=== PATIENT | female | born 1970 | race Caucasian/White ===

== ENCOUNTER 2016-06-13 12:04 | Emergency (ER) | payer OTHER | END 2016-06-13 14:47 | disposition home or self-care (01) | LOC: ER 12:04 | DX: N75.1 Abscess of Bartholin's gland (principal); F17.210 Nicotine dependence, cigarettes, uncomplicated ==

== ENCOUNTER 2016-06-15 08:13 | Emergency (ER) | payer OTHER ==
[2016-06-15] MEDS ORDERED: PROPARACAINE 0.5% OP SOLN ONE (08:52)
== END 2016-06-15 09:06 | disposition home or self-care (01) ==
LOC: ER 08:13
DX: N75.1 Abscess of Bartholin's gland (principal); F17.210 Nicotine dependence, cigarettes, uncomplicated

== ENCOUNTER 2016-06-18 18:26 | Emergency (ER) | payer OTHER, SELFPAY ==
[2016-06-18] MEDS ORDERED: LIDOCAINE 2% 20 ML ONE (19:54)
[2016-06-18] MEDS ORDERED: DILAUDID 1 MG/ML AMP ONE (20:05)
[2016-06-18] MEDS ORDERED: METRONIDAZOLE 500 MG TAB ONE (22:04)
[2016-06-18] MEDS ORDERED: ONDANSETRON ODT 4 MG TAB ONE (22:04)
== END 2016-06-18 22:48 | disposition home or self-care (01) ==
LOC: ER 18:26
DX: N76.4 Abscess of vulva (principal); A59.01 Trichomonal vulvovaginitis; N76.0 Acute vaginitis
CPT/HCPCS: 87071; 87491; 87591; 87800; 96372